=== PATIENT | female | born 1970 | race Caucasian/White ===

== ENCOUNTER 2020-06-06 02:31 | Emergency (ER) | payer BC ==
[~2020-06-06] VITALS: Ht 160 cm; Wt 97.3 kg
[2020-06-06 02:34] VITALS: TEMP 98.5
[2020-06-06 03:20] VITALS: BP 138/89; PULSE 85
== END 2020-06-06 03:20 | disposition home or self-care (01) ==
LOC: COL.ER 02:31
DX: S01.21XA Laceration without foreign body of nose, initial encounter (principal); F17.200 Nicotine dependence, unspecified, uncomplicated; W31.9XXA Contact with unspecified machinery, initial encounter; Y92.59 Other trade areas as the place of occurrence of the external cause; Y99.0 Civilian activity done for income or pay